=== PATIENT | female | born 1950 | race Caucasian/White ===

== ENCOUNTER 2017-08-23 02:25 | Observation (INO) | payer MEDICARE ==
[2017-08-23] MEDS ORDERED: Zofran 4 MG/2 ML VIAL IV ONE (02:52)
[2017-08-23] MEDS ORDERED: Zofran 4 MG/2 ML VIAL ONE (02:58)
[2017-08-23 03:01] LABS: Appearance CLEAR (CLEAR); BASOPHIL % 0.4 % (0.0-0.4); Basophil (Absolute #) 0.05 (0-0.4); Eosinophil % 4.6 % (0.00-5.0); Eosinophil (Absolute #) 0.54 (0-0.5); Glucose NEGATIVE (NEGATIVE); Granulocyte Absolute (ANC) 8.89 (1.4-6.9); Granulocytes % 74.9 % (36.0-66.0); Hematocrit 43.5 % (35-47); Hemoglobin 14.4 gm/dl (12.0-16.0); Ketones NEGATIVE (NEGATIVE); Leukocyte Esterase NEGATIVE (NEGATIVE); Lymphocyte (Absolute #) 1.48 (1.0-4.6); Lymphocytes % 12.5 % (24.0-44.0); Mean Cell Volume 92.6 fl (78-100); Mean Corpuscular Hemoglobin 30.6 pg (26-32); Mean Corpuscular Hgb Concent. 33.1 g/dl (32-36); Mean Platelet Volume 11.3 fl (6-9.5); Monocytes % 7.6 % (0.0-12.0); Nitrite NEGATIVE (NEGATIVE); Platelet Count 289 K/mm3 (150-450); Protein,Urine Dip NEGATIVE (Negative); Red Cell Distribution Width 13.3 % (11.5-14.0); Specific Gravity 1.025 (1.005-1.025); Urobilinogen NORMAL mg/dL (0-1); White Blood Count 11.9 K/mm3 (4.0-10.5)
--- NOTE | 2017-08-23 03:01 | ERPHSYRPT ---
- History of Present Illness Time Seen by Provider: 08/23/17 02:38 Historian: patient Exam Limitations: no limitations Patient Subjective Stated Complaint: Pt arrives to ER with c/o lower abdominal pain began 1999 after eating. States had colonoscopy early this year and was told has diverticulitis but has been eating nuts recently thinks could be causing her pain. Denies diarrhea. States has nausea without vomiting. Denies fever, dysuria, hematuria, vaginal bleeding. Denies any other sx. Triage Nursing Assessment: Pt does not appear to be in any distress at this time with respirations easy even regular and unlabored. Pt abdomen is tender to palpation. Active bowel sounds x4 quad. Physician History: Patient with history of diverticulosi, presents with abdominal pain that began at 10 PM last night. Patient states that she had a colonoscopy in June, in which she was diagnosed with diverticulosis inadvertently. Patient was doing well until today when she notice that she is eating some mixed nuts earlier in the day than her supper, which consisted of a hamburger. Patient described pain 7/10 max and presently 5/10 to bilateral lower abdominal area, crampy with sharp exacerbation, constant, nonradiating and associated with nausea.. Patient denies any fever, chills, vomiting, diarrhea, back pain or urinary symptoms. Patient did drive to the ED by herself, because she did not want to wake her . Patient has not taken any medicines for discomfort Timing/Duration: hour(s) (4), constant, gradual onset, worse Activities at Onset: none Quality: cramping, sharpness Abdominal Pain Onset Location: RLQ, LLQ Pain Radiation: no radiation Severity of Pain-Max: moderate Severity of Pain-Current: moderate Modifying Factors: Improves With: nothing Associated Symptoms: nausea, No back, No chest pain, No diaphoresis, No diarrhea , No fever/chills, No loss of appetite, No neck pain, No rash, No shortness of breath, No vomiting, No weakness Allergies/Adverse Reactions: ciprofloxacin [From Cipro] Allergy (Verified 08/23/17 02:41) ciprofloxacin HCl [From Cipro] Allergy (Verified 08/23/17 02:41) Penicillins Allergy (Verified 08/23/17 02:41) Home Medications: Aspirin 81 mg PO DAILY 04/30/14 [History] Atorvastatin Calcium [Lipitor] 10 mg PO DAILY 04/30/14 [History] Nebivolol HCl [Bystolic] 5 mg PO 04/30/14 [History] Hx Influenza Vaccination/Date Given: No - Review of Systems Constitutional: No Fever, No Chills, No Weakness Eyes: No Symptoms Ears, Nose, & Throat: No Symptoms Respiratory: No Symptoms, No Cough, No Dyspnea Cardiac: No Symptoms, No Chest Pain, No Edema, No Syncope Abdominal/Gastrointestinal: Abdominal Pain, Nausea, No Vomiting, No Diarrhea, No Constipation, No Hematemesis, No Hematochezia, No Melena, No Appetite Changes Genitourinary Symptoms: No Symptoms, No Dysuria Musculoskeletal: No Symptoms, No Back Pain, No Neck Pain Skin: No Symptoms, No Rash Neurological: No Symptoms, No Dizziness, No Focal Weakness, No Sensory Changes Psychological: No Symptoms Endocrine: No Symptoms All Other Systems: Reviewed and Negative - Past Medical History Pertinent Past Medical History: Yes Neurological History: No Pertinent History ENT History: No Pertinent History Cardiac History: Arrhythmia, Hypertension Respiratory History: No Pertinent History Endocrine Medical History: No Pertinent History Musculoskeletal History: Degenerative Disk Disease GI Medical History: Diverticulosis Psycho-Social History: No Pertinent History Female Reproductive Disorders: Other Other Medical History: PPM BACK PROBLEMS-DX WITH BULGING DISC ,STENOSIS, EXTRUSION 7 MONTHS AGO -HX OF BLADDER SUSPENSION, QUESTIONABLE DIVERTICULITIS - Past Surgical History Past Surgical History: Yes Neuro Surgical History: No Pertinent History Cardiac: Pacemaker Respiratory: No Pertinent History Gastrointestinal: No Pertinent History Genitourinary: No Pertinent History Musculoskeletal: No Pertinent History Female Surgical History: No Pertinent History - Social History Smoking Status: Never smoker Exposure to second hand smoke: No Drug Use: none Patient Lives Alone: No - Female History Hx Now: No - Nursing Vital Signs Nursing Vital Signs: Initial Vital Signs Temperature 98.6 F 08/23/17 02:29 Pulse Rate 61 08/23/17 02:29 Respiratory Rate 18 08/23/17 02:29 Blood Pressure 141/73 08/23/17 02:29 O2 Sat by Pulse Oximetry 96 08/23/17 02:29 Pain Scale Pain Intensity 7 - Physical Exam General Appearance: no apparent distress, alert Eye Exam: PERRL/EOMI, eyes nml inspection Ears, Nose, Throat Exam: normal ENT inspection, pharynx normal, moist mucous membranes Neck Exam: normal inspection, non-tender, supple, full range of motion Respiratory Exam: normal breath sounds, lungs clear, No respiratory distress Cardiovascular Exam: regular rate/rhythm, normal heart sounds Gastrointestinal/Abdomen Exam: soft, normal bowel sounds, tenderness (mild to RLQ/LLQ), No distention, No mass Pelvic Exam: not done Rectal Exam: deferred Back Exam: normal inspection, normal range of motion, No CVA tenderness, No vertebral tenderness Extremity Exam: normal inspection, normal range of motion, pelvis stable Neurologic Exam: alert, oriented x 3, cooperative, normal mood/affect, nml cerebellar function, sensation nml, No motor deficits Skin Exam: normal color, warm, dry SpO2: 96 Oxygen Delivery: Room Air - Course Nursing assessment & vital signs reviewed: Yes - CT Exams Abdomen/Pelvis CT Interpretation: Tele-radiologist Report, Other (Ileitis with partial SBO) Ordered Tests: Active Orders 24 hr Category Date Time Status IV Insertion STAT Care 08/23/17 02:52 Active ABDOMEN AND PELVIS W CONTRAST [CT] Stat Exams 08/23/17 02:53 Taken AMYLASE Stat Lab 08/23/17 02:57 Completed CBC W DIFF Stat Lab 08/23/17 02:57 Completed CMP Stat Lab 08/23/17 02:57 Completed LIPASE Stat Lab 08/23/17 02:57 Completed UA W/RFX UR CULTURE Stat Lab 08/23/17 02:57 Completed Medication Summary Discontinued Medications Generic Name Dose Route Start Last Admin Trade Name Freq PRN Reason Stop Dose Admin Ondansetron HCl 4 mg 08/23/17 02:52 08/23/17 03:01 Zofran 4 Mg/2 Ml Vial IV 08/23/17 02:53 4 mg STAT ONE Administration Ondansetron HCl Confirm 08/23/17 02:58 Zofran 4 Mg/2 Ml Vial Administered 08/23/17 02:59 Dose 4 mg .ROUTE .STK-MED ONE Lab/Rad Data: Laboratory Result Diagrams 08/23/17 02:57 08/23/17 02:57 Laboratory Results 08/23/17 08/23/17 08/23/17 Range/Units 02:57 02:57 02:57 WBC 11.9 H (4.0-10.5) K/mm3 RBC 4.70 (4.1-5.4) M/mm3 Hgb 14.4 (12.0-16.0) gm/dl Hct 43.5 (35-47) % MCV 92.6 (78-100) fl MCH 30.6 (26-32) pg MCHC 33.1 (32-36) g/dl RDW 13.3 (11.5-14.0) % Plt Count 289 (150-450) K/mm3 MPV 11.3 H (6-9.5) fl Gran % 74.9 H (36.0-66.0) % Eos # (Auto) 0.54 H (0-0.5) Absolute Lymphs (auto) 1.48 (1.0-4.6) Absolute Monos (auto) 0.90 (0.0-1.3) Lymphocytes % 12.5 L (24.0-44.0) % Monocytes % 7.6 (0.0-12.0) % Eosinophils % 4.6 (0.00-5.0) % Basophils % 0.4 (0.0-0.4) % Absolute Granulocytes 8.89 H (1.4-6.9) Basophils # 0.05 (0-0.4) Sodium 141 (137-145) mmol/L Potassium 3.9 (3.5-5.1) mmol/L Chloride 105 (98-107) mmol/L Carbon Dioxide 25 (22-30) mmol/L Anion Gap 14.9 (5-15) MEQ/L BUN 20 H (7-17) mg/dL Creatinine 0.72 (0.52-1.04) mg/dL Estimated GFR > 60.0 ML/MIN Glucose 116 H (74-106) mg/dL Calcium 9.8 (8.4-10.2) mg/dL Total Bilirubin 0.50 (0.2-1.3) mg/dL AST 72 H (14-36) U/L ALT 108 H (0-35) U/L Alkaline Phosphatase 141 H (38-126) U/L Serum Total Protein 7.4 (6.3-8.2) g/dL Albumin 4.4 (3.5-5.0) g/dL Amylase 72 (30-110) U/L Lipase 64 (23-300) U/L Ur Collection Type VOID Urine Color YELLOW (YELLOW) Urine Appearance CLEAR (CLEAR) Urine pH 5.0 (5-6) Ur Specific [place] 1.025 (1.005-1.025) Urine Protein NEGATIVE (Negative) Urine Ketones NEGATIVE (NEGATIVE) Urine Blood NEGATIVE (0-5) Ion/ul Urine Nitrite NEGATIVE (NEGATIVE) Urine Bilirubin NEGATIVE (NEGATIVE) Urine Urobilinogen NORMAL (0-1) mg/dL Ur Leukocyte Esterase NEGATIVE (NEGATIVE) Urine Culture Reflexed NO (NO) Urine Glucose NEGATIVE (NEGATIVE) mg/dL Specimen Received 08/23/17 0250 - Progress Progress Note: 08/23/17 03:02 Patient was given Zofran for nausea/vomiting. Instructed patient that we cannot give any strong pain medicine unless she has a ride home from the ED 08/23/17 05:[address] results. Patient's okay with being admitted for further evaluation at [facility]. We will start IV antibiotic along with morphine for pain. Discussed with : Malvin (Notified and agreed to accept for admission) Will see patient in: hospital (observation) Counseled pt/family regarding: lab results, diagnosis, rad results - Departure Time of Disposition: 05:07 Departure Disposition: Observation Clinical Impression: Ileitis, Partial small bowel obstruction Condition: Stable Critical Care Time: No Referrals: AMERICA TRUONG [Primary Care Provider] -
[2017-08-23 03:02] LABS: Bilirubin NEGATIVE (NEGATIVE); Blood NEGATIVE Ery/ul (0-5)
[2017-08-23 03:36] LABS: ALBUMIN 4.4 g/dL (3.5-5.0); ALKALINE PHOSPHATASE 141 U/L (38-126); AMYLASE 72 U/L (30-110); ANION GAP 14.9 MEQ/L (5-15); BLOOD UREA NITROGEN 20 mg/dL (7-17); CHLORIDE 105 mmol/L (98-107); Calcium 9.8 mg/dL (8.4-10.2); Carbon Dioxide 25 mmol/L (22-30); Creatinine 1 0.72 mg/dL (0.52-1.04); Glucose 116 mg/dL (74-106); LIPASE 64 U/L (23-300); Potassium 3.9 mmol/L (3.5-5.1); SGOT/AST 72 U/L (14-36); SGPT/ALT 108 U/L (0-35); SODIUM 141 mmol/L (137-145); Total Protein 7.4 g/dL (6.3-8.2)
[2017-08-23] MEDS ORDERED: MORPHINE SULFATE 4 MG INJ IV ONE (05:09)
[2017-08-23] MEDS ORDERED: FLAGYL 500 MG IVPB 500 MG/100 ML BAG IV STA (05:09)
[2017-08-23] MEDS ORDERED: Rocephin 1000 MG INJ IV ONE (05:10)
[2017-08-23] MEDS ORDERED: FLAGYL 500 MG IVPB 500 MG/100 ML BAG IV ONE (05:19)
[2017-08-23] MEDS ORDERED: ROCEPHIN 1 Gm-D5w 50 ml Bag** 1 G/50 ML IVPB IV ONE (05:19)
[2017-08-23] MEDS ORDERED: MORPHINE SULFATE 2 MG INJ ONE (05:19)
[2017-08-23] MEDS ORDERED: Zofran 4 MG/2 ML VIAL IV PRN (05:41)
[2017-08-23] MEDS ORDERED: MORPHINE SULFATE 2 MG INJ IV PRN (05:41)
[2017-08-23] MEDS: Dextrose 5% -0.45 NaCl 1000 ML 1,000 ML IV SCH ×2 (06:10→17:41)
[2017-08-23] MEDS: FLAGYL 500 MG IVPB 500 MG/100 ML BAG IV SCH ×3 (06:13→22:19)
[2017-08-23] MEDS ORDERED: TYLENOL 325 MG PO PRN (08:50)
--- NOTE | 2017-08-23 09:10 | CONS ---
CONSULT DATE: 08/23/2017 This patient is seen for Dr. Reuben Chavez who is diagnostic cardiac sonographer for our group today. He asked that I see the patient while I was rounding on some other postoperative patients. HISTORY: A 66 year-old female had some vague abdominal cramps and some distention, some nausea. She came into the emergency department and apparently did a CT scan. She had some distended bowel loops and thickened and question of ileitis with secondary question of possible obstruction. She said she has had some bowel movements during the night. She has not had an NG placed. One was ordered by the emergency room physician. She denies any personal history of Crohn's disease. PAST MEDICAL/SURGICAL HISTORY: She had some heart issues in the past. She had pacemaker in the past. She had appendectomy. She did not report hysterectomy but I had seen that listed on one of her other records in the emergency room. HOME MEDICATIONS: As listed per the emergency room. ALLERGIES: CIPRO, PENICILLIN. FAMILY HISTORY: As listed per the emergency room. SOCIAL HISTORY: As listed per the emergency room. REVIEW OF SYSTEMS: Twelve systems reviewed per admission assessment. No chest pain or palpitations other systems negative or noncontributory as above and per preadmission questionnaire. PHYSICAL EXAMINATION: GENERAL: No acute distress. HEENT: Sclera nonicteric. NECK: No JVD. CHEST: Equal excursion, nonlabored breathing. CVS: Regular rate and rhythm. ABDOMEN: Very soft. No rebound. No guarding. Some mild distention, minimal tenderness, benign exam. EXTREMITIES: No significant edema. NEURO: Alert, moving extremities grossly symmetrically. No gross motor deficits noted. IMPRESSION: Thickened ileum, some distended loops of bowel proximal to that whether this is an inflammatory bowel disease versus infectious ileitis or other etiology is unclear. Either way no emergent surgery necessary. I feel she needs a trial of bowel rest, IV hydration. NG had been ordered but she had some bowel movements and she wants to hold off at the moment. If she fails to improve we then would recommend NG tube but the patient is not agreeing at this moment. Continue medical management. No emergent surgery necessary. Will check some films tomorrow. Increase activity. The patient understands and agrees to the plan. Will notify Dr. Reuben Chavez who is here as he is diagnostic cardiac sonographer for our group today.
--- NOTE | 2017-08-23 09:13 | XRAY ---
Indication: Left abdominal pain and nausea. Elevated WBC. Multiple contiguous axial images obtained through the abdomen and pelvis using 80 cc Isovue 370 contrast only. Comparison: None. Lung bases demonstrates bibasilar atelectasis/scarring. No infiltrate or effusion. Heart is borderline enlarged. Small hiatal hernia. Noncontrasted stomach and bowel loops appear nonobstructed. Distal/terminal ileum demonstrates mild wall thickening with minimal stranding, ileitis versus Crohn's disease. Tiny pelvic free fluid. No walled off fluid collection or free air. The more proximal small bowel loops are mildly fluid distended with synchronous fluid leveling, ileus versus enteritis. Mild diffuse scattered colonic fecal debris throughout and minimal distal descending diverticulosis. Rectal anal anastomosis intact. Previous appendectomy and hysterectomy. There are multiple hepatic cysts, largest in the left lobe measuring 4.5 cm. 1 cm left mid renal cyst. Tiny gallstones/gravel. Remaining liver, pancreas, spleen, adrenal glands, kidneys, ureters, and bladder appear unremarkable. Minimal aortic calcifications. No AAA or pathologic retroperitoneal lymphadenopathy. Osseous structures again demonstrate degenerative changes throughout the spine, scoliosis, and posterior L3-L4 fusion. Impression: 1. Distal ileal wall thickening with minimal stranding, ileitis versus Crohn's disease. More proximal small bowel loops are mildly fluid distended with synchronous leveling, ileus versus enteritis. Small pelvic free fluid presumed reactive. 2. Mild fecal stasis without obstruction and minimal colonic diverticulosis. 3. Hepatic cysts and solitary left renal cyst. 4. Tiny gallstones/gravel. Gallbladder sonogram may yield further information if clinically warranted. 5. Small hiatal hernia. Comment: Preliminary interpretation was made by [facility]. No critical discrepancy. CT DI 20.44
[2017-08-23] MEDS ORDERED: NON-FORMULARY ITEM (Atorvastatin Calcium [Lipitor] 10 MG) PO SCH (10:00)
[2017-08-23] MEDS ORDERED: NON-FORMULARY ITEM (Aspirin [Aspirin] 81 MG) PO SCH (10:00)
--- NOTE | 2017-08-23 10:01 | HP ---
HISTORY OF PRESENT ILLNESS: This is a 66 year-old patient without a physician in the local area. She reported that she started having abdominal pain about 2030 hours last night. She reports it started from her epigastric area and then all the way down to her pelvis and then seemed to settle in the right and left lower quadrant. She reports at 0200 hours she was still in pain and could not sleep and it seemed to be getting worse so she came to the emergency department. She reports she had nausea at home, too. She reports months ago she woke up with pain in the middle of the night which she reports as gastritis and was able to walk around and it got better. She reports a colonoscopy in May or June [address] Mercado that revealed two small benign polyps but otherwise was normal. The patient reports her last normal bowel movement was at midnight last night. She denies any blood in her stool. She has had nausea but no vomiting. Denies any diarrhea. She reports her pain is better since she has been here. REVIEW OF SYSTEMS: She denies any cough. No rhinorrhea. She reports she is urinating normal. No dysuria. No hematuria. Otherwise review of systems as noted in the history of present illness. PAST MEDICAL HISTORY: Hyperlipidemia. 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 Her bookkeeper is Dr. Persaud. PAST SURGICAL HISTORY: Bunion. Hysterectomy. Both ovaries removed. Surgery for bladder prolapse. MEDICATIONS: Aspirin 81 mg p.o. daily, atorvastatin 10 mg p.o. daily, Bystolic 5 mg p.o. daily. ALLERGIES: PENICILLIN, CIPROFLOXACIN. SOCIAL HISTORY: She is and lives with her . She denies any tobacco or alcohol use. 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 FAMILY HISTORY: Her mother is and had Alzheimer's and a stroke. Her father is and had lung cancer. PHYSICAL EXAMINATION: VITAL SIGNS: Temperature current 98.1F, temperature max 98.6F, heart rate 61 to 62, respiratory rate 15 to 18, blood pressure 130 to 141 over 70 to 80, weight 75.6 kg. Oxygen saturation 95 to 96% on room air. GENERAL: The patient is a lying in bed in no acute distress, a pleasant talkative lady. CVS: She has a regular rate and rhythm. No murmurs, gallops or rubs are appreciated. CHEST: Clear to auscultation bilaterally. No crackles or wheezes. ABDOMEN: Normal bowel sounds, nondistended, soft, mild tenderness in the right and left lower quadrants. No guarding. No rigidity. EXTREMITIES: No clubbing, cyanosis or edema. SKIN: Warm, dry and intact. LABORATORY DATA AND TESTS: White blood cell count 11,900 with 74% granulocytes, 12% lymphocytes. CMP with AST 72, ALT 108, alkaline phosphatase 141. UA negative. Lipase and amylase were normal. CT scan of her abdomen and pelvis with IV contrast was read by the tele-radiologist as ileitis with stranding, mild small bowel dilatation and feces compatible with partial small bowel obstruction and also a small amount of streaky fluid of the mesentery adjacent to the bowel loops. ASSESSMENT AND PLAN: 1) PARTIAL SMALL BOWEL OBSTRUCTION: She is currently NPO. Surgeon, Dr. Philip, has been consulted. She has repeat x-rays ordered for this morning. 2) ILEITIS: She has been started on ceftriaxone and metronidazole. It is also noted that Dr. Philip has ordered Zosyn. However the patient has an allergy to penicillin with a rash so the nurse is double checking with him if he wants her to be on that. She has morphine 2 mg IV every four hours ordered as needed for pain. She is on IV fluids. She has Zofran ordered as needed for nausea. 3) HISTORY OF ARRHYTHMIA: Will plan to continue with her Bystolic and she has a pacemaker in place. If needed we will contact her bookkeeper. 4) HYPERLIPIDEMIA: Will continue with her atorvastatin. 5) DEEP VENOUS THROMBOSIS PROPHYLAXIS: Will use ERIC teresitae.
[2017-08-23] MEDS: ECOTRIN 81 MG PO SCH (11:38)
[2017-08-23] MEDS: Zocor 10MG PO SCH (11:38)
[2017-08-23] MEDS: Bystolic 5 MG PO SCH (11:38)
[2017-08-24] MEDS: Dextrose 5% -0.45 NaCl 1000 ML 1,000 ML IV SCH (03:46)
[2017-08-24 05:45] LABS: BASOPHIL % 0.4 % (0.0-0.4); Basophil (Absolute #) 0.02 (0-0.4); Eosinophil % 9.4 % (0.00-5.0); Eosinophil (Absolute #) 0.49 (0-0.5); Granulocytes % 53.5 % (36.0-66.0); Hematocrit 39.2 % (35-47); Lymphocyte (Absolute #) 1.24 (1.0-4.6); Lymphocytes % 23.7 % (24.0-44.0); Mean Cell Volume 92.9 fl (78-100); Mean Corpuscular Hemoglobin 30.8 pg (26-32); Mean Corpuscular Hgb Concent. 33.2 g/dl (32-36); Mean Platelet Volume 11.2 fl (6-9.5); Monocyte (Absolute #) 0.68 (0.0-1.3); Platelet Count 234 K/mm3 (150-450); Red Blood Count 4.22 M/mm3 (4.1-5.4); Red Cell Distribution Width 13.2 % (11.5-14.0); White Blood Count 5.2 K/mm3 (4.0-10.5)
[2017-08-24 05:59] LABS: ALBUMIN 3.3 g/dL (3.5-5.0); ALKALINE PHOSPHATASE 86 U/L (38-126); ANION GAP 11.7 MEQ/L (5-15); BLOOD UREA NITROGEN 10 mg/dL (7-17); CHLORIDE 108 mmol/L (98-107); Calcium 8.8 mg/dL (8.4-10.2); Carbon Dioxide 26 mmol/L (22-30); Creatinine 1 0.63 mg/dL (0.52-1.04); Glucose 115 mg/dL (74-106); Potassium 3.7 mmol/L (3.5-5.1); SGOT/AST 46 U/L (14-36); SGPT/ALT 84 U/L (0-35); SODIUM 142 mmol/L (137-145); Total Protein 5.9 g/dL (6.3-8.2)
[2017-08-24] MEDS: FLAGYL 500 MG IVPB 500 MG/100 ML BAG IV SCH ×2 (06:38→16:13)
[2017-08-24] MEDS: Bystolic 5 MG PO SCH (08:00)
[2017-08-24] MEDS: Zocor 10MG PO SCH (08:00)
[2017-08-24] MEDS: ECOTRIN 81 MG PO SCH (08:00)
--- NOTE | 2017-08-24 08:31 | PCM.NOTE ---
Date and Time: 08/24/17825 Subjective Assessment: Patient reports she still has some discomfort more in her right lower abdomen. Nurses notes states she has passed gas and she confirms this. Colonoscopy report from earlier this year reviewed and pt has history of diverticulitis. - Review of Systems Constitutional: No Symptoms Eyes: No Symptoms Ears, Nose, & Throat: No Symptoms Respiratory: No Symptoms Cardiac: No Symptoms Abdominal/Gastrointestinal: Abdominal Pain, No Nausea, No Vomiting Genitourinary Symptoms: No Symptoms Musculoskeletal: No Symptoms Objective Exam General Appearance: no apparent distress, alert Neurologic Exam: alert, cooperative, normal mood/affect Skin Exam: normal color, warm, dry, No rash Respiratory Exam: normal breath sounds, lungs clear, No crackles/rales, No rhonchi, No wheezing Cardiovascular Exam: regular rate/rhythm, normal heart sounds, No murmur, No friction rub, No gallop Gastrointestinal/Abdomen Exam: soft, normal bowel sounds, tenderness, other ( mild right lower quadrant pain, no rigidity), No distention, No mass, No guarding Extremity Exam: other (no c/c/e) OBJECTIVE DATA Vital Signs: Vital Signs - 24 hr Temp Pulse Resp BP Pulse Ox 08/24/17 07:17 98.1 F 74 18 140/70 97 08/24/17 04:00 98.0 F 60 18 145/65 95 08/23/17 23:57 98.3 F 60 20 133/68 94 L 08/23/17 18:54 97.9 F 61 18 114/62 93 L 08/23/17 16:00 98.0 F 60 18 114/61 91 L 08/23/17 11:44 98.6 F 60 18 118/67 96 Pain Assessment - Last Documented Pain Intensity 0 Pain Scale Used 0-10 Pain Scale Intake and Output: Intake & Output 08/22/17 08/23/17 08/24/17 08/25/17 06:59 06:59 06:59 06:59 Intake Total 2160 Output Total 2500 Balance -340 Weight 75.6 kg Lab Results: Lab Results-Last 24 Hours 08/24/17 08/24/17 Range/Units 05:35 05:35 WBC 5.2 (4.0-10.5) K/mm3 RBC 4.22 (4.1-5.4) M/mm3 Hgb 13.0 (12.0-16.0) gm/dl Hct 39.2 (35-47) % MCV 92.9 (78-100) fl MCH 30.8 (26-32) pg MCHC 33.2 (32-36) g/dl RDW 13.2 (11.5-14.0) % Plt Count 234 (150-450) K/mm3 MPV 11.2 H (6-9.5) fl Gran % 53.5 (36.0-66.0) % Eos # (Auto) 0.49 (0-0.5) Absolute Lymphs (auto) 1.24 (1.0-4.6) Absolute Monos (auto) 0.68 (0.0-1.3) Lymphocytes % 23.7 L (24.0-44.0) % Monocytes % 13.0 H (0.0-12.0) % Eosinophils % 9.4 H (0.00-5.0) % Basophils % 0.4 (0.0-0.4) % Absolute Granulocytes 2.80 (1.4-6.9) Basophils # 0.02 (0-0.4) Sodium 142 (137-145) mmol/L Potassium 3.7 (3.5-5.1) mmol/L Chloride 108 H (98-107) mmol/L Carbon Dioxide 26 (22-30) mmol/L Anion Gap 11.7 (5-15) MEQ/L BUN 10 (7-17) mg/dL Creatinine 0.63 (0.52-1.04) mg/dL Estimated GFR > 60.0 ML/MIN Glucose 115 H (74-106) mg/dL Calcium 8.8 (8.4-10.2) mg/dL Total Bilirubin 0.30 (0.2-1.3) mg/dL AST 46 H (14-36) U/L ALT 84 H (0-35) U/L Alkaline Phosphatase 86 (38-126) U/L Serum Total Protein 5.9 L (6.3-8.2) g/dL Albumin 3.3 L (3.5-5.0) g/dL Radiology Exams: Radiology Procedures Category Date Time Status ABDOMEN 2 VIEW Routine Exams 08/24/17 07:00 Taken ABDOMEN 2 VIEW Urgent Exams 08/25/17 07:00 Ordered Assessment/Plan (1) Partial small bowel obstruction Current Visit: Yes Status: Acute Onset Date: ~08/23/17 Assessment & Plan: General surgeon following. Plan for her to continue to be NPO until cleared by surgeon. Code(s): K56.600 - PARTIAL INTESTINAL OBSTRUCTION, UNSPECIFIED TO CAUSE (2) Ileitis Current Visit: Yes Status: Acute Onset Date: ~08/23/17 Assessment & Plan: Continue metronidazole and ceftriaxone. Discussed with patient that I would plan to send her home on antibiotics when she is discharged. Patient seems anxious to go home. Code(s): K52.9 - NONINFECTIVE GASTROENTERITIS AND COLITIS, UNSPECIFIED (3) History of cardiac arrhythmia Current Visit: Yes Status: Acute Assessment & Plan: Patient has pacemaker and she is on bystolic. Code(s): Z86.79 - PERSONAL HISTORY OF OTHER DISEASES OF THE CIRCULATORY SYSTEM (4) Hyperlipidemia Current Visit: Yes Status: Acute Assessment & Plan: Continue statin. Code(s): E78.5 - HYPERLIPIDEMIA, UNSPECIFIED (5) DVT prophylaxis Current Visit: Yes Status: Acute Assessment & Plan: Continue kwesi hose. Code(s): CGD4413 - (6) History of diverticulosis Current Visit: Yes Status: Acute Code(s): Z87.19 - PERSONAL HISTORY OF OTHER DISEASES OF THE DIGESTIVE SYSTEM
--- NOTE | 2017-08-24 08:34 | XRAY ---
Indication: Partial small bowel obstruction. Comparison: None. There is CT abdomen/pelvis August 23, 2017. 2 views of the abdomen nonacute and nonobstructed with mild diffuse scattered colonic fecal debris. No focal bowel dilatation, fluid leveling, or free air. Solid organs unremarkable. Osseous structures intact with mild multilevel lumbar degenerative spondylosis. Impression: Mild fecal stasis without obstruction.
[2017-08-24] MEDS ORDERED: ROCEPHIN 1 Gm-D5w 50 ml Bag** 1 G/50 ML IVPB IV SCH (10:00)
[2017-08-24 16:14] VITALS: BP 148/72; PULSE 64; O2SAT 95
== END 2017-08-24 18:15 | disposition home or self-care (01) ==
LOC: ED 02:25 → MED SURG 05:35
PROVIDERS: ADMIT Internal Medicine; ATTEND Internal Medicine
DX: K56.600 Partial intestinal obstruction, unspecified as to cause (principal); K52.9 Noninfective gastroenteritis and colitis, unspecified; E78.5 Hyperlipidemia, unspecified; Z86.010 Personal history of colon polyps; Z95.0 Presence of cardiac pacemaker; Z79.899 Other long term (current) drug therapy; Z87.19 Personal history of other diseases of the digestive system
CPT/HCPCS: 36000; 36415; 74021; 74177; 80053; 81002; 82150; 83690; 85025; 96365; 96367; 96374; 96375; 99283; 99285; G0378; J0696; J2270; J2405; A9270-GY

== ENCOUNTER 2019-02-18 08:45 | Day surgery (SDC) | payer MEDICARE, OTHER ==
--- NOTE | 2019-02-18 08:34 | HP ---
AMENDED REPORT: DATE OF SURGERY: 02/18/2019 HISTORY OF PRESENT ILLNESS: The patient is a 68 year-old with epigastric pain, had some cardiac issues ruled out recently. There is concern whether she had some reflux or esophagitis on proton pump inhibitor. No prior upper endoscopy. No nausea or vomiting. Sometimes her symptoms are worse with some greasy foods. PAST MEDICAL HISTORY: Heart disease, hyperlipidemia, hypertension. PAST SURGICAL HISTORY: Hysterectomy. Bunion surgery in the past. Pacemaker. MEDICATIONS: Labetalol, Lipitor, aspirin, Estrace cream. ALLERGIES: PENICILLIN. CIPRO. FAMILY HISTORY: Cancer, hypertension. SOCIAL HISTORY: No smoking or alcohol abuse. REVIEW OF SYSTEMS: Fourteen systems reviewed. No chest pain or palpitations. Other systems negative or noncontributory as above and per preadmission questionnaire. PHYSICAL EXAMINATION: GENERAL: No acute distress. HEENT: Sclerae nonicteric. NECK: No JVD. CHEST: Equal excursion, nonlabored breathing. CVS: Regular rate and rhythm. ABDOMEN: Soft, mild tenderness epigastrium. Otherwise no rebound, no guarding, no peritoneal signs. EXTREMITIES: No significant edema. NEURO: Alert, oriented, moving extremities symmetrically. No gross motor deficits noted. IMPRESSION: Epigastric pain. Need for evaluation for esophagitis, gastritis, peptic ulcer disease or other etiology. I feel she is a candidate. Risks and benefits explained in detail including but not limited to bleeding or infection, risk of bowel injury or perforation but not limited to, risk of sedation, possibly requiring open procedure, risk of missed or nondiagnosis or incomplete exam possibly requiring barium swallow, other studies or procedures. She understands if work up is negative she may need further work up such as gallbladder workup to rule out the etiology of her symptoms. She understands all of the above but not limited to, will proceed with EGD with possible biopsy as an outpatient when OR time available.
[~2019-02-18 08:45] MED LIST: Lactated Ringers 1,000 ML IV SCH
[2019-02-18] MEDS ORDERED: Ketamine HCl 50 MG/ML ONE (10:26)
[2019-02-18] MEDS ORDERED: DIPRIVAN 200 MG/20 ML IV ONE (10:26)
[2019-02-18 11:16] VITALS: O2SAT 93
--- NOTE | 2019-02-18 11:42 | OP ---
SURGERY DATE/TIME: 02/18/2019 1024 PREOPERATIVE DIAGNOSIS: Epigastric pain unclear etiology. POSTOPERATIVE DIAGNOSIS: Mild erosive gastritis. PROCEDURES: 1) EGD with cold biopsy of the small bowel to evaluate for celiac sprue. 2) Cold biopsy of the antrum to evaluate for Helicobacter pylori. SURGEON: Dr. Rc Philip. ANESTHESIA: MAC. ESTIMATED BLOOD LOSS: Minimal. INDICATIONS: As noted above. Risks and benefits explained in detail and not limited to and consent obtained. DESCRIPTION OF PROCEDURE AND FINDINGS: The patient is taken to the operating room. MAC anesthesia induced. After official time out and no disagreement with planned procedure, a bite block positioned. Video gastroscope passed through the gastroesophageal junction to the patent pylorus to the junction of the second and third portion of the duodenum. Duodenum and duodenal bulb grossly unremarkable. She had some mild gastritis that were severe enough to cause her symptoms. It was elected to go ahead and biopsy for celiac sprue given her symptoms. Cold biopsy taken of the small bowel to evaluate for celiac sprue. Good hemostasis noted. The scope pulled back into the antrum. She had some mild superficial erosive gastritis. Cold biopsy taken to evaluate for Helicobacter pylori. Good hemostasis noted. On retroflex the gastroesophageal junction was snug against the scope. No signs of any large hiatal hernia. The scope was straightened. Again, cold biopsy had been taken in the antrum for Helicobacter pylori. Scope pulled back. There were no signs of any obvious polyps, masses or other mucosal lesions other than the mild erosive gastritis. Scope pulled back to gastroesophageal junction noted about 40 cm. Z-line was crisp. No signs of Gimenez's. No signs of esophagitis. No signs of any obvious esophageal mucosal lesions on slow careful withdrawal of the scope. The patient tolerated the procedure well. Findings discussed with the family. There were no immediate complications. I will see her back in the office next week to go over the results. Will check gallbladder ultrasound for further evaluation as she was having some symptoms with greasy food she said. I will see her back in the office next week.
[2019-02-18 13:10] VITALS: BP 144/65; PULSE 69
== END 2019-02-18 11:45 | disposition home or self-care (01) ==
LOC: SDC 08:45
PROVIDERS: ATTEND Surgery
DX: K29.70 Gastritis, unspecified, without bleeding (principal); I10 Essential (primary) hypertension; E78.5 Hyperlipidemia, unspecified; I51.9 Heart disease, unspecified
CPT/HCPCS: J2704

== ENCOUNTER 2019-03-25 09:06 | Day surgery (SDC) | payer MEDICARE, OTHER ==
--- NOTE | 2019-03-25 08:23 | HP ---
DATE OF SURGERY: 03/25/2019 HISTORY OF PRESENT ILLNESS: The patient is a 68 year-old patient. She had an upper endoscopy in the past, gallbladder ultrasound negative in the past. She had epigastric pain. I initially ordered a HIDA scan at the time on office visit. She wanted to wait and talk to Dr. Hernandez. She initially had the HIDA scan ordered to evaluate her gallbladder. She had ejection fraction of 15%. It was felt she had symptomatic biliary dyskinesia, chronic cholecystitis. It was felt she would benefit from cholecystectomy. PAST MEDICAL HISTORY: Bunions. PAST SURGICAL HISTORY: Pacemaker. Vaginal prolapse in the past. Upper endoscopy in the past. MEDICATIONS: Sotalol, Lipitor, Estrace, aspirin. ALLERGIES: PENICILLIN. CIPRO. FAMILY HISTORY: Cancer. SOCIAL HISTORY: No smoking or alcohol abuse. REVIEW OF SYSTEMS: Fourteen systems reviewed per admission assessment. Epigastric pain. No chest pain or palpitations other systems negative or noncontributory as above and per preadmission questionnaire. PHYSICAL EXAMINATION: GENERAL: No acute distress. HEENT: Sclerae nonicteric. NECK: No JVD. CHEST: Equal excursion, nonlabored breathing. CVS: Regular rate and rhythm. ABDOMEN: Soft. EXTREMITIES: No significant edema. NEURO: Alert, oriented, moving extremities symmetrically. No gross motor deficits noted. IMPRESSION: Symptomatic biliary dyskinesia, probable chronic cholecystitis. I feel the patient will benefit from cholecystectomy. Risks and benefits explained in detail including but not limited to bleeding or infection, risk of trocar injury or hernia, small risk of bowel, bladder or blood vessel injury, small risk of bile leak, bile duct injury, retained stone or sludge possibly requiring further procedure either open or ERCP, general risk of anesthesia, deep venous thrombosis, pulmonary embolism, pneumonia, perioperative risk of aches, pains, bloating, constipation and/or loose stools possibly chronic in nature, possibility procedure may not improve her symptoms. She may need further work up and/or testing, other studies or procedures. She understands and agrees to the planned procedure, will proceed with outpatient laparoscopic cholecystectomy possible open for symptomatic biliary dyskinesia, chronic cholecystitis.
[~2019-03-25 09:06] MED LIST changes: +DIPRIVAN 200 MG/20 ML IV ONE; -Lactated Ringers 1,000 ML IV SCH; +Quelicin Fliptop 200 MG/10 ML ONE; +SUBLIMAZE 100 MCG/2 ML ONE; +Zemuron 100 MG/10 ML ONE
[2019-03-25] MEDS ORDERED: Sensorcaine 0.25% 10 ML ONE (09:10)
[2019-03-25] MEDS ORDERED: Lactated Ringers 1,000 ML IV ONE ×2 (09:10→09:30)
[2019-03-25] MEDS ORDERED: CLINDAMYCIN-D5W 900 MG/50 ML*** 900 MG/50 ML BAG IV SCH (09:30)
[2019-03-25] MEDS ORDERED: Levofloxacin 500MG/100ML D5W 500 MG/100 ML BAG IV SCH (09:30)
[2019-03-25] MEDS ORDERED: Levofloxacin 500MG/100ML D5W 500 MG/100 ML BAG IV ONE (09:30)
[2019-03-25] MEDS ORDERED: Lactated Ringers 1,000 ML IV SCH (09:30)
[2019-03-25 09:49] VITALS: PULSE 60
[2019-03-25] MEDS ORDERED: MEFOXIN 2 GM PREMIX** 2 GM/50 ML ML IV SCH (10:30)
[2019-03-25] MEDS ORDERED: MEFOXIN 2 GM PREMIX** 2 GM/50 ML ML IV ONE (10:45)
[2019-03-25] MEDS ORDERED: Decadron 4 MG INJ ONE (12:15)
[2019-03-25] MEDS ORDERED: BRIDION 200MG/2ML IV ONE (12:15)
[2019-03-25] MEDS ORDERED: TORAdol 30 mg Injection ONE (12:15)
[2019-03-25] MEDS ORDERED: Zofran 4 MG/2 ML VIAL ONE ×2 (12:15→13:49)
[2019-03-25] MEDS ORDERED: Zofran 4 MG/2 ML VIAL IV STA (13:54)
[2019-03-25 14:33] VITALS: BP 135/75; O2SAT 94
[2019-03-25] MEDS: NORCO 5/325 MG PO PRN ×2 (14:37→14:40)
--- NOTE | 2019-03-26 07:40 | OP ---
SURGERY DATE/TIME: 03/25/2019 1206 PREOPERATIVE DIAGNOSIS: Symptomatic biliary dyskinesia, chronic cholecystitis. POSTOPERATIVE DIAGNOSIS: Symptomatic biliary dyskinesia, chronic cholecystitis. PROCEDURE: Laparoscopic cholecystectomy. SURGEON: Dr. Rc Philip. ANESTHESIA: General. ESTIMATED BLOOD LOSS: Minimal. INDICATIONS: As noted above. Risks and benefits explained in detail but not limited to and consent obtained. DESCRIPTION OF PROCEDURE AND FINDINGS: The patient was taken to the operating room. General anesthesia induced. Abdomen prepped and draped in the usual sterile fashion. After official time out and no disagreement with planned procedure, a transverse incision made at the supraumbilical area. Fascia grasped and pulled upward. Veress needle inserted and tested with saline. Pneumoperitoneum accomplished insufflating opening pressure of 0-15. A 11 mm bladeless port and camera inserted without difficulty followed by two - 5 mm right upper quadrant ports and 5 mm epigastric port. The gallbladder is grasped. It had omental adhesions, chronic inflammatory reaction of the gallbladder. It was slowly and carefully taken down from the posterior, lateral to anterior fashion. Slowly and carefully cystic duct and infundibular area and the main cystic artery are isolated until the critical view obtained both anteriorly and posteriorly. Once this is accomplished cystic duct and cystic artery clipped x3 and divided in usual fashion. There were two or three other oozing side branches off the cystic artery necessary to clip directly on the gallbladder wall. This is quite a vascular gallbladder. Gallbladder slowly and carefully dissected free from its liver bed staying directly on the gallbladder wall. Just prior to releasing from final attachments to the anterior edge of the liver, the liver bed re-inspected. Clips noted in place cystic duct and cystic artery stumps. No signs of any active bleeding or bile leakage. It was felt there was no benefit in drain placement. Gallbladder released, pulled up and out the supraumbilical port site and passed off. The port is replaced. Copious amount of irrigation accomplished lateral to the liver and subhepatic space irrigating until clear. Liver bed re-inspected. Clips noted in place cystic duct and cystic artery stumps. There are no signs of any active bleeding or bile leakage. Fascia defect 02/08 site closed with puncture closure device with #1 Vicryl. Pneumoperitoneum decompressed. The wound irrigated out. Skin incision closed with 4-0 Vicryl. Steri-Strips and sterile dressing applied. 0.25% Marcaine local injected along the skin incision fascial defect at the beginning of the procedure. The patient tolerated the procedure well. Findings discussed with the patient's family later in the holding area.
== END 2019-03-25 14:55 | disposition home or self-care (01) ==
LOC: SDC 09:06
PROVIDERS: ATTEND Surgery
DX: K82.8 Other specified diseases of gallbladder (principal); K81.1 Chronic cholecystitis
CPT/HCPCS: J0330; J0694; J1100; J1885; J1956; J2405; J2704; J3010; A9270-GY

== ENCOUNTER 2020-04-24 02:32 | Emergency (ER) | payer MEDICARE, OTHER ==
--- NOTE | 2020-04-24 03:08 | ERPHSYRPT ---
- History of Present Illness Time Seen by Provider: 04/24/20 02:50 Historian: patient Exam Limitations: no limitations Patient Subjective Stated Complaint: pt states "I began to have chest pain at 10:30 tonight. I was worried because I began to have nausea." Triage Nursing Assessment: pt ambulated into the er; pt is axo x3; c/o chest pain with nausea; pt states she has had multiple episodes starting 3 days prior; pt states that she had multiple episodes today but was worried when she began to feel nausea; pt states that she waiting for other symptoms of a heart attack before coming in; muffled apical heart tone; strong radial and pedal pulses; no edema present; clear lung sounds in all lobes; active bowel sounds in all quads; hypertensive; hx of pacemaker; paced rhythm Physician History: This is a 69-year-old white female who has a history of heart rhythm issues and it has required an atrial pacemaker as well as beta-kyrie. Her nickel plater is in [place], Dr. Poon. Patient states that she has had a cardiac catheterization in the past and it did not show coronary artery vessel disease significant enough to have a stent placed. Patient is on Eliquis. She presents with chest pain that has been intermittent but resolved on its own in the last several days. What was concerning to her last night and this morning is that she had the substernal, central ache without radiation then associated nausea. She denies shortness of breath. She has no vomiting and no diarrhea. She has had no fever or other flulike symptoms. Patient did not take any nitroglycerin because she has an outdated prescription for it and has never had to use it. Timing/Duration: yesterday, other (Associated nausea) Activities at Onset: rest Quality: aching Location: substernal, central Chest Pain Radiation: no radiation Severity of Pain-Max: moderate Severity of Pain-Current: moderate Modifying Factors: Improves With: nothing Associated Symptoms: nausea, No vomiting, No abdominal pain, No shortness of breath, No diaphoresis Prior Chest Pain/Cardiac Workup: cardiac cath Nitro Today/Relief: no nitro taken today Aspirin Treatment Today: no aspirin today Allergies/Adverse Reactions: ciprofloxacin HCl [From Cipro] Allergy (Mild, Verified 04/24/20 02:41) Stomach Pain ciprofloxacin [From Cipro] Allergy (Verified 04/24/20 02:41) Penicillins Allergy (Verified 04/24/20 02:41) Hives Home Medications: Atorvastatin Calcium [Lipitor] 10 mg PO DAILY 04/30/14 [History] Estradiol [Estrace] 42.5 gm .ROUTE UD 02/06/19 [History] Nitroglycerin [Nitrostat] 0.4 mg SL UD PRN 02/06/19 [History] Sotalol HCl [Sotalol] 120 mg PO BID 03/25/19 [History] Hx Tetanus, Diphtheria Vaccination/Date Given: Yes Hx Influenza Vaccination/Date Given: Yes Hx Pneumococcal Vaccination/Date Given: Yes Travel Risk - International Travel Have you traveled outside of the country in past 3 weeks: No - Coronavirus Screening Are you exhibiting any of the following symptoms?: No Close contact with a COVID-19 positive Pt in past 14-21 Days: No - Review of Systems Constitutional: No Symptoms Eyes: No Symptoms Ears, Nose, & Throat: No Symptoms Respiratory: No Symptoms Cardiac: Chest Pain Abdominal/Gastrointestinal: Nausea, No Abdominal Pain, No Vomiting, No Diarrhea Genitourinary Symptoms: No Symptoms Musculoskeletal: No Symptoms Skin: No Symptoms Neurological: No Symptoms Psychological: No Symptoms Endocrine: No Symptoms Hematologic/Lymphatic: No Symptoms Immunological/Allergic: No Symptoms All Other Systems: Reviewed and Negative - Past Medical History Pertinent Past Medical History: Yes Neurological History: No Pertinent History ENT History: No Pertinent History Cardiac History: Arrhythmia, High Cholesterol, Hypertension, Other Respiratory History: No Pertinent History Endocrine Medical History: No Pertinent History Musculoskeletal History: Degenerative Disk Disease GI Medical History: Diverticulosis, GERD History: No Pertinent History Psycho-Social History: No Pertinent History Female Reproductive Disorders: Other Other Medical History: PPM BACK PROBLEMS-DX WITH BULGING DISC ,STENOSIS, EXTRUSION 7 MONTHS AGO -HX OF BLADDER SUSPENSION, QUESTIONABLE DIVERTICULITIS. tachycardia. Pacemaker - Past Surgical History Past Surgical History: Yes Neuro Surgical History: No Pertinent History Cardiac: Cardiac Catheterization, Pacemaker Respiratory: No Pertinent History Gastrointestinal: No Pertinent History Genitourinary: No Pertinent History Musculoskeletal: No Pertinent History Female Surgical History: Hysterectomy, Tubal Ligation Other Surgical History: Bunions removed. Pacemaker placement - Social History Smoking Status: Never smoker Exposure to second hand smoke: No Drug Use: none Patient Lives Alone: No - Female History Hx Now: No - Nursing Vital Signs Nursing Vital Signs: Initial Vital Signs Temperature 98.7 F 04/24/20 02:43 Pulse Rate 60 04/24/20 02:43 Respiratory Rate 20 04/24/20 02:43 Blood Pressure 178/87 04/24/20 02:43 O2 Sat by Pulse Oximetry 98 04/24/20 02:43 Pain Scale Pain Intensity 0 - Physical Exam General Appearance: no apparent distress, alert, anxiety Eye Exam: PERRL/EOMI, eyes nml inspection Ears, Nose, Throat Exam: normal ENT inspection, moist mucous membranes Neck Exam: normal inspection, non-tender, supple, full range of motion Respiratory Exam: normal breath sounds, chest tenderness, lungs clear, airway intact, No respiratory distress Cardiovascular Exam: regular rate/rhythm, normal heart sounds, normal peripheral pulses Gastrointestinal/Abdomen Exam: soft, normal bowel sounds, No tenderness Pelvic Exam: not done Rectal Exam: not done Back Exam: normal inspection, normal range of motion, No CVA tenderness, No vertebral tenderness Extremity Exam: normal inspection, normal range of motion, pelvis stable Neurologic Exam: alert, oriented x 3, cooperative, washing tub operator II-XII nml as tested, normal mood/affect, nml cerebellar function, nml station & gait, sensation nml Skin Exam: normal color, warm, dry Lymphatic Exam: No adenopathy SpO2 Interpretation: normal SpO2: 98 O2 Delivery: Room Air - Course Nursing assessment & vital signs reviewed: Yes EKG Interpreted by Me: RATE (61), Right Bundle Branch Block, Other (The patient has a atrial pacemaker that seems to be firing consistently at 60 bpm. Is definitely a paced rhythm. There is incomplete right bundle branch block. There is no evidence of acute ischemic changes. There are no comparison EKGs available.) Ordered Tests: Active Orders 24 hr Category Date Time Status Principal Consultant STAT Care 04/24/20 03:10 Active EKG-ER Only STAT Care 04/24/20 03:10 Active IV Insertion STAT Care 04/24/20 03:10 Active Pulse Oximetry (ED) STAT Care 04/24/20 03:10 Active CHEST 1 VIEW (PORTABLE) Stat Exams 04/24/20 03:10 Taken CBC W DIFF Stat Lab 04/24/20 03:10 Completed CMP Stat Lab 04/24/20 03:10 Completed D-DIMER QUANTITATIVE Stat Lab 04/24/20 03:10 Completed NT PRO BNP Stat Lab 04/24/20 03:10 Completed PROTIME WITH INR Stat Lab 04/24/20 03:10 Completed TROPONIN Q3H Lab 04/24/20 03:10 Completed TROPONIN Q3H Lab 04/24/20 03:55 Completed TROPONIN Q3H Lab 04/24/20 06:28 Received TROPONIN Q3H Lab 04/24/20 12:15 Ordered TROPONIN Q3H Lab 04/24/20 15:15 Ordered UA W/RFX UR CULTURE Stat Lab 04/24/20 03:12 Completed Medication Summary Generic Name Dose Route Start Last Admin Trade Name Freq PRN Reason Stop Dose Admin Sodium Chloride 1,000 mls @ 100 mls/hr 04/24/20 03:15 04/24/20 03:17 Sodium Chloride 0.9% 1000 Ml IV 05/24/20 03:14 100 mls/hr .Q10H AYE Administration Discontinued Medications Generic Name Dose Route Start Last Admin Trade Name Freq PRN Reason Stop Dose Admin Morphine Sulfate 4 mg 04/24/20 03:10 04/24/20 03:15 Morphine Sulfate 4 Mg Inj IV 04/24/20 03:11 4 mg STAT ONE Administration Morphine Sulfate Confirm 04/24/20 03:15 Morphine Sulfate 4 Mg Inj Administered 04/24/20 03:16 Dose 4 mg .ROUTE .STK-MED ONE Nitroglycerin 0.4 mg 04/24/20 03:10 04/24/20 03:17 Nitrostat 0.4 Mg (Ed) SL 04/24/20 03:11 0.4 mg STAT ONE Administration Nitroglycerin Confirm 04/24/20 03:14 Nitrostat 0.4 Mg (Ed) Administered 04/24/20 03:15 Dose 0.4 mg SL .STK-MED ONE Ondansetron HCl 4 mg 04/24/20 03:10 04/24/20 03:16 Zofran 4 Mg/2 Ml Vial IV 04/24/20 03:11 4 mg STAT ONE Administration Ondansetron HCl Confirm 04/24/20 03:14 Zofran 4 Mg/2 Ml Vial Administered 04/24/20 03:15 Dose 4 mg .ROUTE .STK-MED ONE Lab/Rad Data: Laboratory Result Diagrams 04/24/20 03:10 04/24/20 03:10 Laboratory Results 04/24/20 04/24/20 04/24/20 Range/Units 03:55 03:12 03:10 WBC (4.0-10.5) K/mm3 RBC (4.1-5.4) M/mm3 Hgb (12.0-16.0) gm/dl Hct (35-47) % MCV (78-100) fl MCH (26-32) pg MCHC (32-36) g/dl RDW (11.5-14.0) % Plt Count (150-450) K/mm3 MPV (7.5-11.0) fl Gran % (36.0-66.0) % Eos # (Auto) (0-0.5) Absolute Lymphs (auto) (1.0-4.6) Absolute Monos (auto) (0.0-1.3) Lymphocytes % (24.0-44.0) % Monocytes % (0.0-12.0) % Eosinophils % (0.00-5.0) % Basophils % (0.0-0.4) % Absolute Granulocytes (1.4-6.9) Basophils # (0-0.4) PT (9.95-12.35) SECONDS INR (0.8-3.0) D-Dimer (215-500) ng/mL Sodium (137-145) mmol/L Potassium (3.5-5.1) mmol/L Chloride (98-107) mmol/L Carbon Dioxide (22-30) mmol/L Anion Gap (5-15) MEQ/L BUN (7-17) mg/dL Creatinine (0.52-1.04) mg/dL Estimated GFR ML/MIN Glucose (74-106) mg/dL Calcium (8.4-10.2) mg/dL Total Bilirubin (0.2-1.3) mg/dL AST (14-36) U/L ALT (0-35) U/L Alkaline Phosphatase (38-126) U/L Troponin I < 0.012 < 0.012 (0.000-0.034) ng/mL NT-Pro-B Natriuret Pep (0-900) pg/mL Serum Total Protein (6.3-8.2) g/dL Albumin (3.5-5.0) g/dL Urine Color YELLOW (YELLOW) Urine Appearance SLIGHTLY CLOUDY (CLEAR) Urine pH 5.0 (5-6) Ur Specific [place] 1.027 (1.005-1.025) Urine Protein NEGATIVE (Negative) Urine Ketones NEGATIVE (NEGATIVE) Urine Blood NEGATIVE (0-5) Ion/ul Urine Nitrite NEGATIVE (NEGATIVE) Urine Bilirubin NEGATIVE (NEGATIVE) Urine Urobilinogen NEGATIVE (0-1) mg/dL Ur Leukocyte Esterase NEGATIVE (NEGATIVE) Urine WBC (Auto) NONE (0-5) /HPF Urine RBC (Auto) NONE (0-2) /HPF U Hyaline Cast (Auto) 0-2 (0-2) /LPF U Epithel Cells (Auto) NONE (FEW) /HPF Urine Bacteria (Auto) MANY (NEGATIVE) /HPF Urine Mucus (Auto) SLIGHT (NEGATIVE) /HPF Urine Culture Reflexed NO (NO) Urine Glucose NEGATIVE (NEGATIVE) mg/dL 04/24/20 04/24/20 04/24/20 Range/Units 03:10 03:10 03:10 WBC 7.6 (4.0-10.5) K/mm3 RBC 4.47 (4.1-5.4) M/mm3 Hgb 13.8 (12.0-16.0) gm/dl Hct 42.5 (35-47) % MCV 95.1 (78-100) fl MCH 30.9 (26-32) pg MCHC 32.5 (32-36) g/dl RDW 13.0 (11.5-14.0) % Plt Count 259 (150-450) K/mm3 MPV 11.0 (7.5-11.0) fl Gran % 48.1 (36.0-66.0) % Eos # (Auto) 0.27 (0-0.5) Absolute Lymphs (auto) 2.71 (1.0-4.6) Absolute Monos (auto) 0.92 (0.0-1.3) Lymphocytes % 35.7 (24.0-44.0) % Monocytes % 12.1 H (0.0-12.0) % Eosinophils % 3.6 (0.00-5.0) % Basophils % 0.5 (0.0-0.4) % Absolute Granulocytes 3.65 (1.4-6.9) Basophils # 0.04 (0-0.4) PT 12.7 H (9.95-12.35) SECONDS INR 1.12 (0.8-3.0) D-Dimer 256 (215-500) ng/mL Sodium 139 (137-145) mmol/L Potassium 3.8 (3.5-5.1) mmol/L Chloride 107 (98-107) mmol/L Carbon Dioxide 26 (22-30) mmol/L Anion Gap 9.2 (5-15) MEQ/L BUN 20 H (7-17) mg/dL Creatinine 0.73 (0.52-1.04) mg/dL Estimated GFR > 60.0 ML/MIN Glucose 105 (74-106) mg/dL Calcium 9.4 (8.4-10.2) mg/dL Total Bilirubin 0.50 (0.2-1.3) mg/dL AST 27 (14-36) U/L ALT 29 (0-35) U/L Alkaline Phosphatase 74 (38-126) U/L Troponin I (0.000-0.034) ng/mL NT-Pro-B Natriuret Pep 266 (0-900) pg/mL Serum Total Protein 6.9 (6.3-8.2) g/dL Albumin 4.2 (3.5-5.0) g/dL Urine Color (YELLOW) Urine Appearance (CLEAR) Urine pH (5-6) Ur Specific [place] (1.005-1.025) Urine Protein (Negative) Urine Ketones (NEGATIVE) Urine Blood (0-5) Ion/ul Urine Nitrite (NEGATIVE) Urine Bilirubin (NEGATIVE) Urine Urobilinogen (0-1) mg/dL Ur Leukocyte Esterase (NEGATIVE) Urine WBC (Auto) (0-5) /HPF Urine RBC (Auto) (0-2) /HPF U Hyaline Cast (Auto) (0-2) /LPF U Epithel Cells (Auto) (FEW) /HPF Urine Bacteria (Auto) (NEGATIVE) /HPF Urine Mucus (Auto) (NEGATIVE) /HPF Urine Culture Reflexed (NO) Urine Glucose (NEGATIVE) mg/dL - Progress Progress: improved, re-examined Air Movement: good Progress Note: 04/24/20 04:19 Chest x-ray shows no acute cardiopulmonary process. Patient's pain is significantly improved. 04/24/20 06:51 Medical decision making: Patient states that she no longer has chest pain. She is not short of breath. Her vital signs are stable. She is no longer hypertensive. We are awaiting the 3-hour troponin level. If this is normal/negative then we will discharge the patient home. Patient desired to have a prescription for nitroglycerin since hers had . Blood Culture(s) Obtained: No Antibiotics given: No Counseled pt/family regarding: lab results, diagnosis, need for follow-up, rad results - Departure Departure Disposition: Home Clinical Impression: Chest pain Condition: Stable Critical Care Time: No Referrals: AMERICA TRUONG [Primary Care Provider] - Additional Instructions: Take your medication as prescribed. Call your nickel plater on Monday to make arrangements for follow-up appointment. Return to the emergency department if your symptoms recur/worsen. Prescriptions: Nitroglycerin 0.4 mg Tablet [Nitrostat 0.4 MG Tablet] 0.4 mg SL Q5MIN PRN MR X 3 PRN #1 bottle PRN Reason: Chest Pain
[2020-04-24] MEDS ORDERED: Nitrostat 0.4 MG (ED) SL ONE ×2 (03:10→03:14)
[2020-04-24] MEDS ORDERED: MORPHINE SULFATE 4 MG INJ IV ONE (03:10)
[2020-04-24] MEDS ORDERED: Zofran 4 MG/2 ML VIAL IV ONE (03:10)
[2020-04-24] MEDS ORDERED: Zofran 4 MG/2 ML VIAL ONE (03:14)
[2020-04-24] MEDS ORDERED: Sodium Chloride 0.9% 1000 ML 1,000 ML IV SCH (03:15)
[2020-04-24] MEDS ORDERED: Sodium Chloride 0.9% 1000 ML 1,000 ML ONE (03:15)
[2020-04-24] MEDS ORDERED: MORPHINE SULFATE 4 MG INJ ONE (03:15)
[2020-04-24 03:22] LABS: Absolute Neutrophil Ct (ANC) 3.65 (1.4-6.9); BASOPHIL % 0.5 % (0.0-0.4); Basophil (Absolute #) 0.04 (0-0.4); Eosinophil % 3.6 % (0.00-5.0); Eosinophil (Absolute #) 0.27 (0-0.5); Hematocrit 42.5 % (35-47); Hemoglobin 13.8 gm/dl (12.0-16.0); Lymphocyte (Absolute #) 2.71 (1.0-4.6); Lymphocytes % 35.7 % (24.0-44.0); Mean Cell Volume 95.1 fl (78-100); Mean Corpuscular Hemoglobin 30.9 pg (26-32); Mean Corpuscular Hgb Concent. 32.5 g/dl (32-36); Monocyte (Absolute #) 0.92 (0.0-1.3); Monocytes % 12.1 % (0.0-12.0); Neutrophil % 48.1 % (36.0-66.0); Platelet Count 259 K/mm3 (150-450); Red Blood Count 4.47 M/mm3 (4.1-5.4); White Blood Count 7.6 K/mm3 (4.0-10.5)
[2020-04-24 03:24] LABS: INR 1.12 (0.8-3.0); PROTIME 12.7 SECONDS (9.95-12.35)
[2020-04-24 03:27] LABS: Appearance SLIGHTLY CLOUDY (CLEAR); Bacteria MANY /HPF (NEGATIVE); Bilirubin NEGATIVE (NEGATIVE); Blood NEGATIVE Ery/ul (0-5); Glucose NEGATIVE (NEGATIVE); Hyaline Casts 0-2 /LPF (0-2); Ketones NEGATIVE (NEGATIVE); Leukocyte Esterase NEGATIVE (NEGATIVE); Mucus SLIGHT /HPF (NEGATIVE); Nitrite NEGATIVE (NEGATIVE); Protein,Urine Dip NEGATIVE (Negative); Specific Gravity 1.027 (1.005-1.025); Urobilinogen NEGATIVE mg/dL (0-1)
[2020-04-24 03:37] LABS: ALBUMIN 4.2 g/dL (3.5-5.0); ALKALINE PHOSPHATASE 74 U/L (38-126); ANION GAP 9.2 MEQ/L (5-15); BLOOD UREA NITROGEN 20 mg/dL (7-17); CHLORIDE 107 mmol/L (98-107); Calcium 9.4 mg/dL (8.4-10.2); Carbon Dioxide 26 mmol/L (22-30); Creatinine 1 0.73 mg/dL (0.52-1.04); EST GLOMERULAR FILTRATION RATE > 60.0 ML/MIN; Glucose 105 mg/dL (74-106); NT PRO BNP 266 pg/mL (0-900); Potassium 3.8 mmol/L (3.5-5.1); SGOT/AST 27 U/L (14-36); SGPT/ALT 29 U/L (0-35); SODIUM 139 mmol/L (137-145); Total Protein 6.9 g/dL (6.3-8.2)
[2020-04-24 07:00] VITALS: BP 127/79; PULSE 62; O2SAT 96
--- NOTE | 2020-04-24 08:58 | XRAY ---
Indication: Chest pain and nausea. Comparison: None Portable chest demonstrates normal heart and lungs with incidental tiny calcified granulomas and left dual-lead pacemaker. Bony thorax intact with mild osteopenia and degenerative changes. Impression: Nonacute chest with chronic features.
== END 2020-04-24 07:04 | disposition home or self-care (01) ==
LOC: ED 02:32
DX: R07.9 Chest pain, unspecified (principal); Z95.0 Presence of cardiac pacemaker
CPT/HCPCS: 36000; 36415; 71045; 80053; 81001; 83880; 84484; 85025; 85379; 85610; 93005; 93041; 94760; 96374; 96375; 99284; J2270; J2405; A9270-GY

== ENCOUNTER 2022-12-13 00:39 | Emergency (ER) | payer MEDICARE, OTHER ==
--- NOTE | 2022-12-13 00:51 | ERPHSYRPT ---
- History of Present Illness Time Seen by Provider: 12/13/22 00:48 Source: patient Exam Limitations: no limitations Physician History: This 72-year-old white female patient who sees a story teller in [place]. It is now Dr. Bergeron. Dr. Poon is a story teller who used to see this patient but he has retired. The patient has had cardiac catheterization in the past. She has an atrial pacemaker in place she does have arrhythmia issues. She is on Eliquis. She is on sotalol to help control her arrhythmia. Patient states she took all of her typical daily medications today. She is not short of breath and does not have chest pain she just is concerned that her heart rate is jumping from 90s to 110 bpm to 130 bpm back down to 90s. Patient is unsure if she has a history of atrial fibrillation or not. She has been seen in the past in this emergency department for the same type of issue. Timing/Duration: today Activities at Onset: none Severity of Pain-Max: none Severity of Pain-Current: none Nitro Today/Relief: no nitro taken today Aspirin Treatment Today: no aspirin today Associated Symptoms: denies symptoms Prior Chest Pain/Cardiac Workup: cardiac cath Allergies/Adverse Reactions: ciprofloxacin HCl [From Cipro] Allergy (Mild, Verified 12/13/22 00:58) Stomach Pain ciprofloxacin [From Cipro] Allergy (Verified 12/13/22 00:58) Penicillins Allergy (Verified 12/13/22 00:58) Hives Home Medications: Atorvastatin Calcium [Lipitor] 10 mg PO HS 04/30/14 [History] Estradiol [Estrace] 42.5 gm .ROUTE UD 02/06/19 [History] Nitroglycerin [Nitrostat] 0.4 mg SL UD PRN 02/06/19 [History] Sotalol HCl [Sotalol] 120 mg PO BID 03/25/19 [History] Apixaban [Eliquis] 5 mg PO BID 12/13/22 [History] Hx Tetanus, Diphtheria Vaccination/Date Given: Yes Hx Influenza Vaccination/Date Given: Yes Hx Pneumococcal Vaccination/Date Given: Yes Travel Risk - International Travel Have you traveled outside of the country in past 3 weeks: No - Coronavirus Screening Are you exhibiting any of the following symptoms?: No Close contact with a COVID-19 positive Pt in past 14-21 Days: No - Review of Systems Constitutional: No Symptoms Eyes: No Symptoms Ears, Nose, & Throat: No Symptoms Respiratory: No Symptoms Cardiac: Palpitations Abdominal/Gastrointestinal: No Symptoms Genitourinary Symptoms: No Symptoms Musculoskeletal: No Symptoms Skin: No Symptoms Neurological: No Symptoms Psychological: No Symptoms Endocrine: No Symptoms Hematologic/Lymphatic: No Symptoms Immunological/Allergic: No Symptoms All Other Systems: Reviewed and Negative - Past Medical History Pertinent Past Medical History: Yes Neurological History: No Pertinent History ENT History: No Pertinent History Cardiac History: Arrhythmia, High Cholesterol, Hypertension, Other Respiratory History: No Pertinent History Endocrine Medical History: No Pertinent History Musculoskeletal History: Degenerative Disk Disease GI Medical History: Diverticulosis, GERD History: No Pertinent History Psycho-Social History: No Pertinent History Female Reproductive Disorders: Other Other Medical History: PPM BACK PROBLEMS-DX WITH BULGING DISC ,STENOSIS, EXTRUSION 7 MONTHS AGO -HX OF BLADDER SUSPENSION, QUESTIONABLE DIVERTICULITIS. tachycardia. Pacemaker - Past Surgical History Past Surgical History: Yes Neuro Surgical History: No Pertinent History Cardiac: Cardiac Catheterization, Pacemaker Respiratory: No Pertinent History Gastrointestinal: No Pertinent History Genitourinary: No Pertinent History Musculoskeletal: No Pertinent History Female Surgical History: Hysterectomy, Tubal Ligation Other Surgical History: Bunions removed. Pacemaker placement - Social History Smoking Status: Never smoker Exposure to second hand smoke: No Drug Use: none Patient Lives Alone: No - Nursing Vital Signs Nursing Vital Signs: Initial Vital Signs Temperature 98.3 F 12/13/22 00:48 Pulse Rate 90 12/13/22 00:48 Respiratory Rate 20 12/13/22 00:48 Blood Pressure 163/96 12/13/22 00:48 O2 Sat by Pulse Oximetry 95 12/13/22 00:48 Pain Scale Pain Intensity 0 - Physical Exam General Appearance: no apparent distress, alert, anxiety, thin Eye Exam: PERRL/EOMI, eyes nml inspection Ears, Nose, Throat Exam: normal ENT inspection, moist mucous membranes Neck Exam: normal inspection, non-tender, supple, full range of motion Respiratory Exam: normal breath sounds, lungs clear, airway intact, No chest tenderness, No respiratory distress Cardiovascular Exam: regular rate/rhythm Gastrointestinal/Abdomen Exam: soft, normal bowel sounds, No tenderness Pelvic Exam: not done Rectal Exam: not done Back Exam: normal inspection, normal range of motion, No CVA tenderness, No vertebral tenderness Extremity Exam: normal inspection, normal range of motion, pelvis stable Neurologic Exam: alert, oriented x 3, cooperative, digital marketing assistant II-XII nml as tested, normal mood/affect, nml cerebellar function, nml station & gait, sensation nml Skin Exam: normal color, warm, dry Lymphatic Exam: No adenopathy SpO2 Interpretation: normal - Course Nursing assessment & vital signs reviewed: Yes EKG Interpreted by Me: RATE (106), A-fib, NORMAL AXIS, prolonged QT interval, Right Bundle Branch Block (Complete), Other (There are no acute ischemic changes on today's twelve-lead EKG.) Ordered Tests: Active Orders 24 hr Category Date Time Status EKG-ER Only STAT Care 12/13/22 00:51 Active IV Insertion STAT Care 12/13/22 00:51 Active Pulse Oximetry (ED) STAT Care 12/13/22 00:51 Active CBC W DIFF Stat Lab 12/13/22 01:05 Completed CMP Stat Lab 12/13/22 01:05 Completed MAGNESIUM Stat Lab 12/13/22 01:05 Completed NT PRO BNPII Stat Lab 12/13/22 01:05 Completed TROPONIN Q4H Lab 12/13/22 01:05 Completed TROPONIN Q4H Lab 12/13/22 03:55 Completed TROPONIN Q4H Lab 12/13/22 09:00 Ordered UA W/RFX UR CULTURE Stat Lab 12/13/22 01:26 Completed Medication Summary Discontinued Medications Generic Name Dose Route Start Last Admin Trade Name Freq PRN Reason Stop Dose Admin Diltiazem HCl 15 mg 12/13/22 01:11 12/13/22 01:21 Diltiazem Hcl Iv 5 Mg/Ml Vial IV 12/13/22 01:12 Not Given STAT ONE Diltiazem HCl 10 mg 12/13/22 01:21 12/13/22 01:22 Diltiazem Hcl Iv 5 Mg/Ml Vial IV 12/13/22 01:22 10 mg STAT ONE Administration Diltiazem HCl Confirm 12/13/22 01:19 Diltiazem Hcl Iv 5 Mg/Ml Vial Administered 12/13/22 01:20 Dose 50 mg IV .STK-MED ONE Lab/Rad Data: Laboratory Result Diagrams 12/13/22 01:05 12/13/22 01:05 Laboratory Results 08/15/23 08/15/23 08/15/23 Range/Units 03:55 01:26 01:05 WBC (4.0-10.5) x10^3/uL RBC (4.1-5.4) x10^6/uL Hgb (12.0-16.0) g/dL Hct (35-47) % MCV (78-100) fL MCH (26-32) pg MCHC (32-36) g/dL RDW (11.5-14.0) % Plt Count (150-450) x10^3/uL MPV (7.5-11.0) fL Gran % (36.0-66.0) % Immature Gran % (Auto) (0.00-0.4) % Nucleat RBC Rel Count (0.00-0.1) % Eos # (Auto) (0-0.5) x10^3/uL Immature Gran # (Auto) (0.00-0.03) x10^3u/L Absolute Lymphs (auto) (1.0-4.6) x10^3/uL Absolute Monos (auto) (0.0-1.3) x10^3/uL Absolute Nucleated RBC (0.00-0.01) x10^3u/L Lymphocytes % (24.0-44.0) % Monocytes % (0.0-12.0) % Eosinophils % (0.00-5.0) % Basophils % (0.0-0.4) % Absolute Granulocytes (1.4-6.9) x10^3/uL Basophils # (0-0.4) x10^3/uL Sodium (137-145) mmol/L Potassium (3.5-5.1) mmol/L Chloride (98-107) mmol/L Carbon Dioxide (22-30) mmol/L Anion Gap (5-15) MEQ/L BUN (7-17) mg/dL Creatinine (0.52-1.04) mg/dL Estimated GFR ML/MIN Glucose (74-106) mg/dL Calcium (8.4-10.2) mg/dL Magnesium (1.6-2.3) mg/dL Total Bilirubin (0.2-1.3) mg/dL AST (14-36) U/L ALT (0-35) U/L Alkaline Phosphatase (38-126) U/L Troponin I < 0.012 < 0.012 (0.000-0.034) ng/mL NT-Pro-B Natriuret Pep (<300) pg/mL Serum Total Protein (6.3-8.2) g/dL Albumin (3.5-5.0) g/dL Urine Color Yellow (Yellow) Urine Appearance Clear (Clear) Urine pH 7.0 (4.6-8.0) Ur Specific Clear <=1.005 (1.005-1.030) Urine Protein Negative (Negative) Urine Glucose (UA) Negative (Negative) mg/dL Urine Ketones Negative (Negative) Urine Blood Negative (Negative) Urine Nitrite Negative (Negative) Urine Bilirubin Negative (Negative) Urine Urobilinogen 0.2 (0.2) mg/dL Ur Leukocyte Esterase Negative (Negative) U Hyaline Cast (Auto) NONE SEEN (0-2) /LPF Urine Microscopic RBC 0-2 (0-5) /HPF Urine Microscopic WBC 0-2 (0-5) /HPF Ur Epithelial Cells None Seen (None Seen) /HPF Urine Bacteria None Seen (None Seen) /HPF Urine Culture Reflexed NO (NO) 12/13/22 12/13/22 Range/Units 01:05 01:05 WBC 8.5 (4.0-10.5) x10^3/uL RBC 4.36 (4.1-5.4) x10^6/uL Hgb 13.5 (12.0-16.0) g/dL Hct 41.3 (35-47) % MCV 94.7 (78-100) fL MCH 31.0 (26-32) pg MCHC 32.7 (32-36) g/dL RDW 12.5 (11.5-14.0) % Plt Count 269 (150-450) x10^3/uL MPV 10.4 (7.5-11.0) fL Gran % 60.9 (36.0-66.0) % Immature Gran % (Auto) 0.2 (0.00-0.4) % Nucleat RBC Rel Count 0.0 (0.00-0.1) % Eos # (Auto) 0.27 (0-0.5) x10^3/uL Immature Gran # (Auto) 0.02 (0.00-0.03) x10^3u/L Absolute Lymphs (auto) 2.08 (1.0-4.6) x10^3/uL Absolute Monos (auto) 0.92 (0.0-1.3) x10^3/uL Absolute Nucleated RBC 0.00 (0.00-0.01) x10^3u/L Lymphocytes % 24.4 (24.0-44.0) % Monocytes % 10.8 (0.0-12.0) % Eosinophils % 3.2 (0.00-5.0) % Basophils % 0.5 (0.0-0.4) % Absolute Granulocytes 5.21 (1.4-6.9) x10^3/uL Basophils # 0.04 (0-0.4) x10^3/uL Sodium 141 (137-145) mmol/L Potassium 3.6 (3.5-5.1) mmol/L Chloride 109 H (98-107) mmol/L Carbon Dioxide 26 (22-30) mmol/L Anion Gap 10.1 (5-15) MEQ/L BUN 13 (7-17) mg/dL Creatinine 0.73 (0.52-1.04) mg/dL Estimated GFR > 60.0 ML/MIN Glucose 100 (74-106) mg/dL Calcium 9.1 (8.4-10.2) mg/dL Magnesium 2.3 (1.6-2.3) mg/dL Total Bilirubin 0.30 (0.2-1.3) mg/dL AST 26 (14-36) U/L ALT 25 (0-35) U/L Alkaline Phosphatase 100 (38-126) U/L Troponin I (0.000-0.034) ng/mL NT-Pro-B Natriuret Pep 407 (<300) pg/mL Serum Total Protein 6.7 (6.3-8.2) g/dL Albumin 4.0 (3.5-5.0) g/dL Urine Color (Yellow) Urine Appearance (Clear) Urine pH (4.6-8.0) Ur Specific Clear (1.005-1.030) Urine Protein (Negative) Urine Glucose (UA) (Negative) mg/dL Urine Ketones (Negative) Urine Blood (Negative) Urine Nitrite (Negative) Urine Bilirubin (Negative) Urine Urobilinogen (0.2) mg/dL Ur Leukocyte Esterase (Negative) U Hyaline Cast (Auto) (0-2) /LPF Urine Microscopic RBC (0-5) /HPF Urine Microscopic WBC (0-5) /HPF Ur Epithelial Cells (None Seen) /HPF Urine Bacteria (None Seen) /HPF Urine Culture Reflexed (NO) - Progress Progress: improved Air Movement: good Progress Note: 12/13/22 01:10 This patient's medical issue is 1 of moderate complexity. Level complexity in the work-up performed is based on the review of the patient's past medical histo ry, review of the patient's medication list, review of the patient's drug allergy list, history of present illness and physical findings on examination. This patient's work-up includes a placement of intravenous line, twelve-lead EKG, urinalysis, CBC, CMP and troponin level. We will provide the patient with 10 mg of intravenous Cardizem. The patient states that she is usually well below 90s and her heart rate. Since she has been in the emergency room. I observed a range of heart rate from 90s to the highest is 128 bpm. Typically it appears high 90s to the 110s. Patient does not have chest pain. She is maintaining her blood pressure fine. 12/13/22 01:21 I did review the drug profile of both diltiazem and sotalol. There are no contraindications on Epocrates to using both of these medications. The patient needs to be monitored and the dosing to be modified. Therefore I will give lower than typical dose of the intravenous Cardizem. The patient is on a monitor technician. We will also repeat a twelve-lead EKG in a short period of time. 12/13/22 05:27 Patient has been on a monitor technician. Since we gave the low-dose of intravenous Cardizem, the patient's heart rate has been in the normal range. Her cardiac enzymes (troponin x2) are normal. She denies chest pain. The second troponin was performed at 0158 on 12/13/2022. Patient is still in A- fib without acute ischemic changes present. Her heart rate is 76 bpm. At the time of discharge she has no chest pain and denies shortness of breath. Her systolic blood pressure is 123 her heart rate is in the 70s to 80s. Still in atrial fibrillation on the monitor technician as well as respiratory rate in the teens and room air oxygenation saturation level at 98%. Even though by definition she had atrial fibrillation with RVR, it was at a very low level, patient was hemodynamically stable and it was very brief. The rapid rate swiftly responded to the single dose of intravenous Cardizem we provided. The heart rate has stayed in the normal range for several hours with her lab work in a normal range. She is to be discharged to home and she is to call her story teller this morning for further instructions. 12/13/22 05:37 Blood Culture(s) Obtained: No Antibiotics given: No Counseled pt/family regarding: lab results, diagnosis, need for follow-up Medical Desision Making - Diagnostic Testing Diagnostic test were ordered, analyzed, and reviewed by me: Yes - Risk of complications Low Risk: Low risk of morbidity from additional dx testing or treatment - Departure Departure Disposition: Home Clinical Impression: Chronic atrial fibrillation with RVR Condition: Stable Critical Care Time: Yes Critical Care Time(excluding separately billable procedures): Critical 30-74 mins (35) Referrals: AMERICA TRUONG [Primary Care Provider] - Follow up/PCP as directed Additional Instructions: Continue your medications as prescribed. Call your story teller this morning, 12/13/2022, to make arrangements for further evaluation and management.
[2022-12-13 00:54] VITALS: TEMP 98.3
[2022-12-13 01:08] LABS: Absolute Neutrophil Ct (ANC) 5.21 x10^3/uL (1.4-6.9); BASOPHIL % 0.5 % (0.0-0.4); Basophil (Absolute #) 0.04 x10^3/uL (0-0.4); Eosinophil % 3.2 % (0.00-5.0); Eosinophil (Absolute #) 0.27 x10^3/uL (0-0.5); Hematocrit 41.3 % (35-47); Hemoglobin 13.5 g/dL (12.0-16.0); IMMATURE GRAN # 0.02 x10^3u/L (0.00-0.03); IMMATURE GRAN % 0.2 % (0.00-0.4); Lymphocyte (Absolute #) 2.08 x10^3/uL (1.0-4.6); Lymphocytes % 24.4 % (24.0-44.0); Mean Cell Volume 94.7 fL (78-100); Mean Corpuscular Hgb Concent. 32.7 g/dL (32-36); Mean Platelet Volume 10.4 fL (7.5-11.0); Monocyte (Absolute #) 0.92 x10^3/uL (0.0-1.3); Monocytes % 10.8 % (0.0-12.0); Neutrophil % 60.9 % (36.0-66.0); Platelet Count 269 x10^3/uL (150-450); Red Blood Count 4.36 x10^6/uL (4.1-5.4); Red Cell Distribution Width 12.5 % (11.5-14.0); White Blood Count 8.5 x10^3/uL (4.0-10.5)
[2022-12-13] MEDS ORDERED: Cardizem IV 50 MG/10 ML IV ONE ×3 (01:11→01:21)
[2022-12-13 01:39] LABS: ALKALINE PHOSPHATASE 100 U/L (38-126); ANION GAP 10.1 MEQ/L (5-15); BLOOD UREA NITROGEN 13 mg/dL (7-17); CHLORIDE 109 mmol/L (98-107); Calcium 9.1 mg/dL (8.4-10.2); Carbon Dioxide 26 mmol/L (22-30); Creatinine 1 0.73 mg/dL (0.52-1.04); EST GLOMERULAR FILTRATION RATE > 60.0 ML/MIN; Glucose 100 mg/dL (74-106); MAGNESIUM 2.3 mg/dL (1.6-2.3); NT PRO BNPII 407 pg/mL (<300); Potassium 3.6 mmol/L (3.5-5.1); SGOT/AST 26 U/L (14-36); SGPT/ALT 25 U/L (0-35); SODIUM 141 mmol/L (137-145); Total Protein 6.7 g/dL (6.3-8.2)
[2022-12-13 02:08] LABS: Appearance Clear (Clear); Bacteria None Seen /HPF (None Seen); Bilirubin Negative (Negative); Blood Negative (Negative); Epithelial Cells None Seen /HPF (None Seen); Glucose, Urine Negative (Negative); Hyaline Casts NONE SEEN /LPF (0-2); Ketones Negative (Negative); Leukocyte Esterase Negative (Negative); Nitrite Negative (Negative); Protein,Urine Dip Negative (Negative); RBC 0-2 /HPF (0-5); Specific Gravity <=1.005 (1.005-1.030); Urobilinogen 0.2 mg/dL (0.2); WBC 0-2 /HPF (0-5)
[2022-12-13 02:09] LABS: ADD URINE CULTURE? NO (NO)
[2022-12-13 05:23] VITALS: BP 119/84; PULSE 77; RESP 19; O2SAT 97
== END 2022-12-13 05:50 | disposition home or self-care (01) ==
LOC: ED 00:39
DX: I48.20 Chronic atrial fibrillation, unspecified (principal); E78.5 Hyperlipidemia, unspecified; I10 Essential (primary) hypertension; Z79.01 Long term (current) use of anticoagulants; Z79.899 Other long term (current) drug therapy
CPT/HCPCS: 36000; 36415; 80053; 81001; 83735; 83880; 84484; 85025; 93005; 93041; 94760; 96374; 99284

== ENCOUNTER 2023-12-25 10:02 | Emergency (ER) | payer MEDICARE, OTHER ==
[2023-12-25 10:18] VITALS: RESP 18; TEMP 96
--- NOTE | 2023-12-25 10:54 | ERPHSYRPT ---
- History of Present Illness Time Seen by Provider: 12/25/23 10:45 Source: patient Exam Limitations: no limitations Patient Subjective Stated Complaint: Fall- Head injury Triage Nursing Assessment: gggg Occurred: just prior to arrival Severity: mild Head Injury Location: occipital Method of Injury: unknown Loss of Consciousness: no loss of consciousness Associated Symptoms: denies symptoms Allergies/Adverse Reactions: ciprofloxacin HCl [From Cipro] Allergy (Mild, Verified 12/25/23 10:10) Stomach Pain ciprofloxacin [From Cipro] Allergy (Verified 12/25/23 10:10) Penicillins Allergy (Verified 12/25/23 10:10) Hives Home Medications: Atorvastatin Calcium [Lipitor] 10 mg PO HS 04/30/14 [History] Nitroglycerin [Nitrostat] 0.4 mg SL UD PRN 02/06/19 [History] Sotalol HCl [Sotalol] 120 mg PO BID 03/25/19 [History] Apixaban [Eliquis] 5 mg PO BID 12/13/22 [History] Hx Tetanus, Diphtheria Vaccination/Date Given: Yes Hx Influenza Vaccination/Date Given: Yes Hx Pneumococcal Vaccination/Date Given: Yes Immunizations Up to Date: Yes Travel Risk - International Travel Have you traveled outside of the country in past 3 weeks: No - Emerging Infectious Disease Are you exhibiting symptoms associated with any current EIDs: No - Review of Systems Eyes: No Symptoms Ears, Nose, & Throat: No Symptoms Respiratory: No Symptoms Cardiac: No Symptoms Abdominal/Gastrointestinal: No Symptoms Genitourinary Symptoms: No Symptoms Musculoskeletal: No Symptoms Skin: No Symptoms Neurological: No Symptoms Psychological: No Symptoms Endocrine: No Symptoms Hematologic/Lymphatic: No Symptoms Immunological/Allergic: No Symptoms - Past Medical History Pertinent Past Medical History: Yes Neurological History: No Pertinent History ENT History: No Pertinent History Cardiac History: Arrhythmia, High Cholesterol, Hypertension, Other Respiratory History: No Pertinent History Endocrine Medical History: No Pertinent History Musculoskeletal History: Degenerative Disk Disease GI Medical History: Diverticulosis, GERD History: No Pertinent History Psycho-Social History: No Pertinent History Female Reproductive Disorders: Other Other Medical History: PPM BACK PROBLEMS-DX WITH BULGING DISC ,STENOSIS, EXTRUSION 7 MONTHS AGO -HX OF BLADDER SUSPENSION, QUESTIONABLE DIVERTICULITIS. tachycardia. Pacemaker - Past Surgical History Past Surgical History: Yes Neuro Surgical History: No Pertinent History Cardiac: Cardiac Catheterization, Pacemaker Respiratory: No Pertinent History Gastrointestinal: No Pertinent History Genitourinary: No Pertinent History Musculoskeletal: No Pertinent History Female Surgical History: Hysterectomy, Tubal Ligation Other Surgical History: Bunions removed. Pacemaker placement - Social History Smoking Status: Never smoker Exposure to second hand smoke: No Drug Use: none Patient Lives Alone: No - Social Determinants of Health Will the patient participate in the screening: Yes Do you worry about a steady place to live?: No Do you have any problems with any of the following?: No known problems In the past 12 months,have you had to go without utilities?: No Transportation Issues: No Has anyone in your support network made you feel unsafe?: No Have you or anyone in your house had to go without enough: No - Nursing Vital Signs Nursing Vital Signs: Initial Vital Signs Blood Pressure 140/77 12/25/23 10:09 O2 Sat by Pulse Oximetry 97 12/25/23 10:09 Pain Scale Pain Intensity 4 - Anastacio Coma Score Best Eye Response (Anastacio): (4) open spontaneously Best Verbal Response (Anastaico): (5) oriented Best Motor Response (Anastacio): (6) obeys commands [place] Total: 15 - Physical Exam General Appearance: no apparent distress Head Injury: no evidence of injury ENT Exam: airway nml Neck Exam: supple Cardiovascular/Respiratory Exam: chest non-tender Gastrointestinal/Abdominal Exam: soft, non tender Mental Status Exam: alert, oriented x 3 Skin Exam: normal color, warm SpO2 Interpretation: normal SpO2: 96 Ordered Tests: Active Orders 24 hr Category Date Time Status HEAD WITHOUT CONTRAST [CT] Stat Exams 12/25/23 10:49 Completed - Progress Progress Note: ct scan of head was obtained this revealed - this reveals no acute findings at this time - patient was given head injury precautions and informed of the need for follow up 12/25/23 10:53 12/25/23 12:30 - Departure Clinical Impression: Closed head injury Condition: Good Critical Care Time: No Instructions: Head Injury in Adults (DC), Concussion, Adult (DC)
--- NOTE | 2023-12-25 12:00 | XRAY ---
Indication: Right posterior head injury. Multiple contiguous axial images obtained through the head without contrast. Comparison: None Age-appropriate global atrophy and minimal periventricular degenerative micro-ischemia bilaterally. No acute intracranial hemorrhage, abnormal extra-axial fluid collection, or mass effect. Fourth ventricle is midline without hydrocephalus. Bony calvarium intact. Visualized paranasal sinuses and mastoid air cells are clear. Impression: Nonacute senile brain.
[2023-12-25 12:28] VITALS: BP 124/69; PULSE 72
[2023-12-25 12:35] VITALS: O2SAT 96
== END 2023-12-25 12:39 | disposition home or self-care (01) ==
LOC: ED 10:02
DX: S09.90XA Unspecified injury of head, initial encounter (principal); W19.XXXA Unspecified fall, initial encounter; E78.5 Hyperlipidemia, unspecified; I10 Essential (primary) hypertension; Z79.01 Long term (current) use of anticoagulants; Z79.899 Other long term (current) drug therapy
CPT/HCPCS: 70450; 99283